=== PATIENT | female | born 1995 | race American Indian/Alaskan Native ===

== ENCOUNTER 2020-11-18 12:06 | Outpatient (CLI) | payer MEDICAID ==
[2020-11-18 12:34] VITALS: BP 106/62
[2020-11-18] MEDS ORDERED: miSOPROStol 200 MCG TAB ONE (13:08)
[2020-11-18] MEDS ORDERED: METHYLERGONOVINE MALEATE 0.2 MG/ML VIAL IM ONE (13:08)
[2020-11-18] MEDS ORDERED: AMPICILLIN/NS 2 GM/100 ML 2 GM/100 ML BAG IV ONE (14:00)
[2020-11-18] MEDS ORDERED: LACTATED RINGERS 1,000 ML IV ONE (14:00)
== END 2020-11-18 15:21 | disposition home or self-care (01) ==
LOC: TRG 12:06 → APU 12:09 → TRG 15:30
DX: O23.42 Unspecified infection of urinary tract in pregnancy, second trimester (principal); O47.02 False labor before 37 completed weeks of gestation, second trimester; Z3A.22 22 weeks gestation of pregnancy
CPT/HCPCS: 96365; J0290; J7120; 96360

== ENCOUNTER 2021-10-31 17:54 | Emergency (ER) | payer OTHER, MEDICAID ==
[2021-10-31 18:34] VITALS: BP 116/71
== END 2021-11-01 04:12 | disposition left against medical advice (07) ==
LOC: ED 17:54
DX: Z04.1 Encounter for examination and observation following transport accident (principal); Z53.21 Procedure and treatment not carried out due to patient leaving prior to being seen by health care provider; V89.2XXA Person injured in unspecified motor-vehicle accident, traffic, initial encounter; Y93.89 Activity, other specified; Y92.89 Other specified places as the place of occurrence of the external cause; Y99.8 Other external cause status